=== PATIENT | male | born 1950 | race Caucasian/White ===

== ENCOUNTER 2017-02-05 21:31 | Inpatient (IN) | payer MEDICARE ==
[~2017-02-05] VITALS: Ht 185.4 cm; Wt 70.3 kg
--- NOTE | 2017-02-05 21:34 | NUR ---
PTAMBULATORY TO ER BED 07. 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 PT GOWNED AND PLACED ON MONITOR. STABLE VITALS. AWAITING MD MOLINA.
--- NOTE | 2017-02-05 21:58 | NUR ---
IV LINE STARTED BLOOD DRAWN AND SENT TO LAB.
[2017-02-05 22:05] LABS: BASOPHILS % (AUTO) 0.5 % (0.0-2.0); EOSINOPHILS # (AUTO) 0.2 /CMM (0.0-0.7); EOSINOPHILS % (AUTO) 2.7 % (0.0-6.0); HEMATOCRIT 39 % (39-51); LYMPHOCYTES # (AUTO) 3.2 /CMM (0.8-4.8); MEAN CORPUSCULAR HEMOGLOBIN 31 PG (26.0-33.0); MEAN CORPUSCULAR HGB CONC 34 g/dl (31.0-36.0); MEAN CORPUSCULAR VOLUME 93 fL (80-96); MONOCYTES # (AUTO) 0.7 /CMM (0.1-1.30); MONOCYTES % (AUTO) 7.2 % (2.0-12.0); NEUTROPHILS % (AUTO) 54.6 % (43.0-81.0); PLATELET COUNT (AUTO) 281 /CMM (150-450); RDW COEFFICIENT OF VARIATION 14.8 (11.5-15.0); RED BLOOD CELL COUNT(AUTO) 4.17 MIL/uL (4.5-6.0); WHITE BLOOD COUNT (AUTO) 9.1 K/uL (4.3-11.0)
[2017-02-05 22:13] LABS: CALCIUM, SERUM 9.1 mg/dL (8.5-10.1); CARBON DIOXIDE 30 mmol/L (21-32); CHLORIDE 108 mmol/L (98-107); CREATININE 1.4 mg/dL (0.6-1.3); GLUCOSE 108 mg/dL (74-106); SODIUM SERUM 145 mmol/L (136-145); UREA NITROGEN, BLOOD 19 mg/dL (7-18)
[2017-02-05 22:24] LABS: INR 0.91 (0.87-1.13); PROTHROMBIN TIME 9.5 SECS (9.5-12.7)
--- NOTE | 2017-02-05 22:24 | NUR ---
DR RAMSAY AT BEDSIDE FOR EVAL.
[2017-02-05] MEDS ORDERED: NITROGLYCERIN 0.4 MG/TAB BOTTLE SL ONE (22:30)
[2017-02-05] MEDS ORDERED: ASPIRIN 81 MG TAB.CHEW PO ONE (22:30)
[2017-02-05] MEDS ORDERED: NITROGLYCERIN PACKET 1 GM PACKET TD ONE (22:30)
[2017-02-05 22:33] LABS: TROPONIN I < 0.017 ng/mL (0.00-0.056)
[2017-02-05] MEDS ORDERED: NITROGLYCERIN 0.4 MG/TAB BOTTLE ONE (22:38)
[2017-02-05] MEDS ORDERED: NITROGLYCERIN PACKET 1 GM PACKET ONE (22:38)
[2017-02-05] MEDS ORDERED: ASPIRIN 81 MG TAB.CHEW ONE ×2 (22:39→22:42)
[2017-02-05] MEDS ORDERED: ACETAMINOPHEN ES 500 MG TABLET ONE (22:51)
[2017-02-05 22:52] LABS: ALBUMIN 3.5 g/dL (3.4-5.0); BILIRUBIN,TOTAL 0.3 mg/dL (0.2-1.0); TOTAL PROTEIN, SERUM 6.8 g/dL (6.4-8.2)
--- NOTE | 2017-02-05 22:55 | NUR ---
PT STATES CHEST PAIN IS WORST THAN WHEN HE CAME IN. DOES NOT WANT ANOTHER NITRO.STABLE VITALS. WILL CONTINUE TO MONITOR.
[2017-02-05] MEDS ORDERED: ACETAMINOPHEN ES 500 MG TABLET PO ONE (23:00)
--- NOTE | 2017-02-05 23:55 | NUR ---
report to charge nurse laila for carina.
[2017-02-06] VITALS (7 sets, daily range): BP systolic 94–122; BP diastolic 56–72
[2017-02-06] MEDS ORDERED: IV NS 0.9% 250 ML IV ONE
[2017-02-06] MEDS ORDERED: IOHEXOL-350 100 ML VIAL IV ONE
[2017-02-06] MEDS ORDERED: IV NS 0.9% 1,000 ML BAG IV ONE
--- NOTE | 2017-02-06 00:49 | NUR ---
PANEL PAGED PER ER MD ORDER. CT PULMONARY ANGIOGRAM RESULT RECEIVED. ER MD AWARE.
--- NOTE | 2017-02-06 00:49 | NUR ---
Ashtyn leblanc in ED - 02/06/17 at 0054 by LEATHA PANEL PAGED PER ALICE JON PT TRANSPORTED TO RADIOLOGY FOR CT PULMONARY ANGIOGRAM.
--- NOTE | 2017-02-06 00:56 | NUR ---
REPORT CALLED TO RADIOLOGIC TECHNOLOGIST CHIEFMARAL ASTUDILLO. WILL TRANSPORT PT VIA ACLS PROTOCOL.
--- NOTE | 2017-02-06 01:01 | NUR ---
ALICE JENSEN TALKING TO DR. CHAN REGARIDNG PT ADMISSION. WILL TRANSPORT PT VIA ACLS PROTOCOL.
--- NOTE | 2017-02-06 01:16 | NUR ---
pt transfered to via [facility] with emt and rn.
--- NOTE | 2017-02-06 01:20 | NUR ---
RN ADMITTING NOTES RECEIVED REPORT FROM SENIOR MECHANICAL DESIGNER ED. FOUND Pt RESTING COMFORTABLY IN BED. NO S/S OF ACUTE DISTRESS OR SOB NOTED. NO C/O CP AT THIS TIME. Pt IS A/OX4, VERBAL, ABLE TO MAKE NEEDS KNOWN. AT BEDSIDE. ON TELE. IV ACCESS ON LAC #18G, SL. SAFETY MEASURES IN PLACE. BED LOW, LOCKED, HOB ELEVATED, SIDE RAILS UP, CALL LIGHT AND BEDSIDE TABLE WITHIN REACH. WILL CONTINUE TO MONITOR Pt THROUGHOUT THE NIGHT FOR SAFETY.
[2017-02-06] MEDS: NITROGLYCERIN PACKET 1 GM PACKET TOP SCH ×2 (01:30→04:53)
[2017-02-06] MEDS ORDERED: MAG HYDROX/AL HYDROX/SIMETH 30 ML UDC PO PRN (01:30)
[2017-02-06] MEDS ORDERED: ONDANSETRON HCL/PF 4 MG/2 ML VIAL IVP PRN (01:30)
[2017-02-06] MEDS ORDERED: ZOLPIDEM TARTRATE 5 MG TABLET PO PRN (01:30)
[2017-02-06] MEDS ORDERED: ACETAMINOPHEN 325 MG TABLET PO PRN (01:30)
[2017-02-06] MEDS ORDERED: MAGNESIUM HYDROXIDE 30 ML UDC PO PRN (01:30)
[2017-02-06] MEDS ORDERED: MORPHINE SULFATE INJ 2 MG/ML DISP.SYRIN IV PRN (01:30)
[2017-02-06] MEDS ORDERED: HYDROCODONE/APAP 5/325MG 1 EACH TABLET PO PRN (01:30)
[2017-02-06] MEDS ORDERED: Z GUARD REMEDY 2 OZ OINT TP PRN (01:30)
[2017-02-06] MEDS ORDERED: HYDROCODONE/APAP 10/325MG 1 EA TABLET PO PRN (01:30)
[2017-02-06] MEDS ORDERED: ENOXAPARIN SODIUM 40 MG/0.4 ML DISP.SYRIN SQ SCH (01:30)
--- NOTE | 2017-02-06 01:30 | NUR ---
RN NOTES HELD DOSE OF NITRO-BID CREAM @0130. WAS ALREADY GIVEN THE MED IN ER AROUND 2230. WILL GIVE NEXT SCHEDULED DOSE CLOSER TO 600AM.
[2017-02-06] MEDS ORDERED: ENOXAPARIN SODIUM 40 MG/0.4 ML DISP.SYRIN SQ ONE (02:06)
--- NOTE | 2017-02-06 04:57 | NUR ---
RN NOTES HELD NEXT SCHEDULED DOES OF NITRO-BID CREAM D/T DROPPED BP OF 94/57. WILL CONTINUE TO MONITOR Pt's BP THROUGHOUT THE SHIFT.
[2017-02-06] MEDS ORDERED: ACETAMINOPHEN 325 MG TABLET ONE (06:20)
--- NOTE | 2017-02-06 06:45 | NUR ---
RN CLOSING NOTES NO SIGNIFICANT CHANGES IN Pt's CONDITION NOTED DURING THE SHIFT. Pt REMAINS STABLE. ALL NEEDS MET AND ATTENDED TO. SAFETY MEASURES IN PLACE. WILL ENDORSE TO TANNA RN FOR Pt's RANDEE. Addendum: 02/06/17 at 0657 by GRAY MAYBERRY RN TELE READING SB 53, WHILE SLEEPING. SR 60's WHILE AWAKE.
[2017-02-06] MEDS: PANTOPRAZOLE 40 MG TABLET.DR PO SCH (07:30)
--- NOTE | 2017-02-06 08:00 | NUR ---
RN NOTES RECEIVED PATIENT IN THE ROOM A/O X4, COOPERATIVE, NO RESPIRATORY, NO ACUTE DISTRESS AT THIS TIME, PATIENT NPO AT THIS TIME, NO C/O PAIN, V/S TAKEN STABLE, PT AMBULATORY, IV LINE LEFT AC AREA INTACT, PATIENT NEEDS ATTENDED AND ANTICIPATED. CALL LIGHT WITHIN TO REACH, SAFETY PRECAUTION MAINTAINED ALL THE TIME. CONTINUED MONITORING.
[2017-02-06] MEDS ORDERED: IV NS 0.9% 1,000 ML IV PRN (08:20)
[2017-02-06] MEDS ORDERED: PENT400T2 PO (08:25)
[2017-02-06] MEDS ORDERED: ALLO300T2 PO (08:25)
[2017-02-06 08:47] LABS: ALBUMIN 2.9 g/dL (3.4-5.0); BILIRUBIN,TOTAL 1.2 mg/dL (0.2-1.0); CALCIUM, SERUM 8.6 mg/dL (8.5-10.1); CREATININE 1.4 mg/dL (0.6-1.3); MAGNESIUM 1.8 mg/dL (1.8-2.4); PHOSPHORUS 3.4 mg/dL (2.5-4.9); POTASSIUM 3.8 mmol/L (3.5-5.1); TOTAL PROTEIN, SERUM 5.6 g/dL (6.4-8.2)
[2017-02-06 08:54] LABS: THYROID STIMULATING HORMONE 2.251 uIU/mL (0.358-3.74)
[2017-02-06] MEDS: ASPIRIN 325 MG TABLET PO SCH (09:00)
[2017-02-06] MEDS: DOCUSATE SODIUM 100 MG CAPSULE PO SCH ×2 (09:00→16:54)
--- NOTE | 2017-02-06 09:15 | NUR ---
RN NOTES PATIENT WITH US [employer] EXCHANGE ARCHITECT FOR ABDOMINAL ULTRASOUND, NO ACUTE DISTRESS, PT TOLERATED PROCEDURE WELL, STILL NPO, PATIENT SCHEDULED 1200 FOR STRESS TEST. NEXT TO THE BED, CALL LIGHT WITH IN TO REACH, SAFETY PRECAUTION MAINTAINED ALL THE TIME.
--- NOTE | 2017-02-06 11:18 | NUR ---
RN NOTES PATIENT IN THE BED RESTING, NO ACUTE, NO RESPIRATORY DISTRESS, CONSENT FORM SIGN BY PATIENT, NO C/O PAIN AT THIS TIME, CALL LIGHT WITHIN TO REACH. PATIENT NPO, SAFETY PRECAUTION MAINTAINED ALL THE TIME.
--- NOTE | 2017-02-06 12:31 | NUR ---
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
[2017-02-06] MEDS: NITROGLYCERIN 30 GM TUBE TOP SCH ×2 (13:00→20:40)
--- NOTE | 2017-02-06 13:13 | NUR ---
RN NOTES PATIENT BACK FROM STRESS TEST AT THIS TIME, NO ACUTE DISTRESS, NO RESPIRATORY DISTRESS, NO C/O PAIN AT THIS TIME, V/S STABLE, PATIENT GOING TO EAT. CALL LIGHT WITHIN TO REACH, NEXT TO THE BED, SAFETY PRECAUTION MAINTAINED ALL THE TIME.
[2017-02-06] MEDS: ATORVASTATIN 40 MG TABLET PO SCH (16:24)
--- NOTE | 2017-02-06 17:27 | NUR ---
RN NOTES PATIENT IN THE ROOM, NO ACUTE DISTRESS, NO C/O PAIN AT THIS TIME, . PATIENT SCHEDULED MED COMPLIANT, NEXT TO THE BED, CALL LIGHT WITHIN TO REACH, SAFETY PRECAUTION MAINTAINED ALL THE TIME.
--- NOTE | 2017-02-06 19:11 | NUR ---
RN NOTES PATIENT IN THE ROOM, STABLE AT THIS TIME, NO RESPIRATORY DISTRESS, NO C/O PAIN, CALL LIGHT WITHIN TO REACH, PT SELF CARE, AMBULATORY. SAFETY PRECAUTION MAINTAINED ALL THE TIME. ENDORSED ONCOMING NURSE FOR CONTINUATION OF CARE.
--- NOTE | 2017-02-06 19:41 | NUR ---
MS RN INITIAL NOTES PT ARRIVED TO ROOM AFTER VISITING SON IN ICU. AMBULATORY WITHOUT ASSIST. ABLE TO MAKE NEEDS KNOWN. NO SIGNS OF SOB OR DISTRESS. BREATHING EVENLY AND UNLABORED ON ROOM AIR. IV ACCESS IS INTACT AND PATENT. BED IS IN LOW AND LOCKED POSITION, CALL LIGHT WITHIN REACH. WILL CONTINUE TO MONITOR PT
[2017-02-06] MEDS: ENOXAPARIN SODIUM 40 MG/0.4 ML DISP.SYRIN SQ SCH (20:40)
[2017-02-07] MEDS: NITROGLYCERIN 30 GM TUBE TOP SCH ×2 (05:00→13:00)
[2017-02-07 05:53] LABS: BASOPHILS % (AUTO) 0.5 % (0.0-2.0); EOSINOPHILS # (AUTO) 0.2 /CMM (0.0-0.7); EOSINOPHILS % (AUTO) 3.5 % (0.0-6.0); HEMATOCRIT 36 % (39-51); HEMOGLOBIN 11.7 g/dL (13.5-17.5); LYMPHOCYTES # (AUTO) 1.7 /CMM (0.8-4.8); MEAN CORPUSCULAR HEMOGLOBIN 31 PG (26.0-33.0); MEAN CORPUSCULAR HGB CONC 33 g/dl (31.0-36.0); MEAN CORPUSCULAR VOLUME 94 fL (80-96); MONOCYTES # (AUTO) 0.5 /CMM (0.1-1.30); MONOCYTES % (AUTO) 6.9 % (2.0-12.0); NEUTROPHILS # (AUTO) 4.1 /CMM (1.8-8.9); NEUTROPHILS % (AUTO) 63.1 % (43.0-81.0); PLATELET COUNT (AUTO) 214 /CMM (150-450); RED BLOOD CELL COUNT(AUTO) 3.79 MIL/uL (4.5-6.0); WHITE BLOOD COUNT (AUTO) 6.6 K/uL (4.3-11.0)
[2017-02-07 05:59] LABS: BILIRUBIN,DIRECT 3.3 mg/dL (0.0-0.2); BILIRUBIN,TOTAL 4.6 mg/dL (0.2-1.0); CREATININE 1.1 mg/dL (0.6-1.3); MAGNESIUM 1.9 mg/dL (1.8-2.4); PHOSPHORUS 3.7 mg/dL (2.5-4.9); POTASSIUM 4.1 mmol/L (3.5-5.1); TOTAL PROTEIN, SERUM 6.1 g/dL (6.4-8.2)
--- NOTE | 2017-02-07 06:58 | NUR ---
MS RN CLOSING NOTES PT IS IN BED SLEEPING, NO SIGNS OF SOB OR DISTRESS. BREATHING EVENLY AND UNLABORED OR ROOM AIR. ALL NEEDS WERE ANTICIPATED AND MET. WILL ENDORSE TO DAY SHIFT
--- NOTE | 2017-02-07 07:15 | NUR ---
ms rn initial notes Received patient in bed, asleep, head of bed elevated, no SOB or distress noted, on room air and tolerated well 02 saturation of 98%. No complaint of pain or discomfort noted. IV intact and patent HL only. Patient is going for Hida scan procedure at 12 noon verified with Omar. Patient can eat breakfast and NPO after meal. Kept patient clean and comfortable in bed, call light with in patient reach, will continue to monitor accordingly.
[2017-02-07] MEDS: PANTOPRAZOLE 40 MG TABLET.DR PO SCH (07:30)
--- NOTE | 2017-02-07 07:48 | NUR ---
ms rn notes Held pantoprazole medication due this time due to patient is NPO for NM hida scan. Will continue to monitor accordingly.
[2017-02-07 08:00] VITALS: BP 129/71
[2017-02-07] MEDS: ASPIRIN 325 MG TABLET PO SCH ×2 (08:18→08:23)
[2017-02-07] MEDS: ATORVASTATIN 40 MG TABLET PO SCH ×2 (08:18→08:23)
[2017-02-07] MEDS: DOCUSATE SODIUM 100 MG CAPSULE PO SCH ×3 (08:18→16:24)
--- NOTE | 2017-02-07 08:24 | NUR ---
ms rn notes All due 9am medications not given due to patient refusal, explained the risk and benefits x 3, and still refused. per patient "Dr. Neal came and informed me that my heart is okay" so i dont want to take those medications". Will continue to monitor accordingly.
[2017-02-07] MEDS ORDERED: ALLOPURINOL 100 MG TABLET PO SCH (09:00)
[2017-02-07 16:00] VITALS: BP 133/71
--- NOTE | 2017-02-07 16:14 | NUR ---
ms rn notes Patient refused to take his nitroglycerin ointment, explained the risk and benefits x 3 and still refused. Informed MD and made aware. will continue to monitor accordingly.
--- NOTE | 2017-02-07 16:26 | NUR ---
ms rn notes paged dr Johnson regarding medication and ordered to discontinue Nitroglycerin. All orders carried out amd noted.
--- NOTE | 2017-02-07 19:30 | NUR ---
MS RN OPENING NOTES: RECEIVED PT IN BED LAYING DOWN IN BED. PT HAS 2 FAMILY MEMBERS AT BEDSIDE. PT ON ROOM AIR AND IS TOLERATING WELL. PT HAS IV ON L AC #18G AND IS PATENT AND INTACT. WILL START IV FLUIDS OF D5/0.9% NACL @100ML/HR SOON. PT/FAMILY ADAMANT ABOUT SPEAKING TO DOCTOR ABOUT HIS HIDA RESULTS AND HIS LAB WORK UP WELL. BED KEPT IN LOW, LOCKED POSITION, AND SIDE RAILS X 2 UP. WILL CONTINUE TO MONITOR PT.
--- NOTE | 2017-02-07 19:48 | NUR ---
ms rn closing notes All needs provided, attended, and anticipated. Kept patient clean and comfortable in bed, call light with in patient reach, endorsed to next shift RN to continue care.
[2017-02-07 19:49] VITALS: BP 120/69
[2017-02-07 20:00] VITALS: BP 120/69
[2017-02-07 20:18] LABS: ALBUMIN 3.3 g/dL (3.4-5.0); BILIRUBIN,DIRECT 4.4 mg/dL (0.0-0.2); BILIRUBIN,TOTAL 5.3 mg/dL (0.2-1.0); TOTAL PROTEIN, SERUM 6.7 g/dL (6.4-8.2)
[2017-02-07] MEDS: IV D5/ 0.9% NACL 1,000 ML IV PRN (20:27)
[2017-02-07] MEDS: ENOXAPARIN SODIUM 40 MG/0.4 ML DISP.SYRIN SQ SCH (21:00)
--- NOTE | 2017-02-07 21:07 | NUR ---
MS RN NOTES: PAGED FOR DOCTOR. FAMILY AND PATIENT ADAMANT ABOUT SPEAKING TO DOCTOR.
--- NOTE | 2017-02-07 21:10 | NUR ---
MS RN NOTES: SPOKE WITH DR. WHITMORE. DR WHITMORE SAID HE WILL SEE PATIENT AND FAMILY AROUND 10 OCLOCK.
--- NOTE | 2017-02-07 21:45 | NUR ---
MS RN NOTES: PT REFUSING LOVENOX AFTER HAVING EXPLAINED RISKS AND BENEFITS. PT STILL REFUSING.
--- NOTE | 2017-02-07 22:05 | NUR ---
MS RN NOTES: DR. WHITMORE AT BEDSIDE.
[2017-02-07] MEDS ORDERED: PIPERACILLIN /TAZOBACTAM 3.375 G VIAL IV ONE (23:46)
[2017-02-07] MEDS: PIPERACILLIN /TAZOBACTAM 3.375 G in IV D5W 50 ML IV SCH (23:56)
[2017-02-08] MEDS ORDERED: PIPERACILLIN /TAZOBACTAM 3.375 G VIAL IV ONE (05:18)
[2017-02-08] MEDS: PIPERACILLIN /TAZOBACTAM 3.375 G in IV D5W 50 ML IV SCH ×4 (05:23→23:58)
--- NOTE | 2017-02-08 07:25 | NUR ---
MS RN CLOSING NOTES: ALL NEEDS WERE ATTENDED AND ANTICIPATED FOR. PT IS RESTING UP WITH HOB ELEVATED. PT ON ROOM AIR AND IS TOLERATING WELL. PT HAS IV ON L AC #18G AND IS PATENT AND INTACT AND BEING INFUSED WITH D5/0.9% NACL AT 100ML/HR. URINAL OUTPUT WAS 450ML. BED KEPT IN LOW, LOCKED POSITION, AND SIDE RAILS X 2 UP. ENDORSED TO AM NURSE FOR RANDEE.
--- NOTE | 2017-02-08 07:50 | NUR ---
MS RN OPENING NOTES PATIENT IS ALERT AND ORIENTED. IN NO APPARENT DISTRESS. CALL LIGHT IS WITHIN REACH. BED IS LOCKED AND LOWERED. SIDE RAILS ARE UP X2. WILL CONTINUE TO MONITOR.
[2017-02-08 07:55] LABS: BASOPHILS % (AUTO) 0.3 % (0.0-2.0); EOSINOPHILS # (AUTO) 0.2 /CMM (0.0-0.7); EOSINOPHILS % (AUTO) 2.9 % (0.0-6.0); HEMATOCRIT 37 % (39-51); HEMOGLOBIN 12.4 g/dL (13.5-17.5); LYMPHOCYTES # (AUTO) 1.5 /CMM (0.8-4.8); LYMPHOCYTES % (AUTO) 18.7 % (20.0-44.0); MEAN CORPUSCULAR HEMOGLOBIN 31 PG (26.0-33.0); MEAN CORPUSCULAR HGB CONC 34 g/dl (31.0-36.0); MEAN CORPUSCULAR VOLUME 94 fL (80-96); MONOCYTES # (AUTO) 0.7 /CMM (0.1-1.30); MONOCYTES % (AUTO) 8.7 % (2.0-12.0); NEUTROPHILS # (AUTO) 5.8 /CMM (1.8-8.9); NEUTROPHILS % (AUTO) 69.4 % (43.0-81.0); PLATELET COUNT (AUTO) 219 /CMM (150-450); RDW COEFFICIENT OF VARIATION 14.9 (11.5-15.0); RED BLOOD CELL COUNT(AUTO) 3.93 MIL/uL (4.5-6.0); WHITE BLOOD COUNT (AUTO) 8.3 K/uL (4.3-11.0)
[2017-02-08 07:56] LABS: ALBUMIN 2.9 g/dL (3.4-5.0); BILIRUBIN,TOTAL 4.9 mg/dL (0.2-1.0); CALCIUM, SERUM 9.1 mg/dL (8.5-10.1); CREATININE 1.3 mg/dL (0.6-1.3); MAGNESIUM 1.8 mg/dL (1.8-2.4); PHOSPHORUS 3.1 mg/dL (2.5-4.9); POTASSIUM 3.9 mmol/L (3.5-5.1); TOTAL PROTEIN, SERUM 6.2 g/dL (6.4-8.2)
[2017-02-08 07:58] LABS: ALBUMIN 2.9 g/dL (3.4-5.0); BILIRUBIN,DIRECT 3.9 mg/dL (0.0-0.2); BILIRUBIN,TOTAL 4.8 mg/dL (0.2-1.0); TOTAL PROTEIN, SERUM 6.1 g/dL (6.4-8.2)
[2017-02-08 08:06] VITALS: BP 139/76
[2017-02-08] MEDS: ASPIRIN 325 MG TABLET PO SCH (08:38)
[2017-02-08] MEDS: DOCUSATE SODIUM 100 MG CAPSULE PO SCH ×2 (08:39→17:00)
[2017-02-08] MEDS: PANTOPRAZOLE 40 MG TABLET.DR PO SCH (08:39)
[2017-02-08] MEDS: IV D5/ 0.9% NACL 1,000 ML IV PRN (12:25)
[2017-02-08 12:47] LABS: ALBUMIN 2.9 g/dL (3.4-5.0); BILIRUBIN,DIRECT 4.2 mg/dL (0.0-0.2); BILIRUBIN,TOTAL 5.1 mg/dL (0.2-1.0); TOTAL PROTEIN, SERUM 6.1 g/dL (6.4-8.2)
[2017-02-08 16:00] VITALS: BP 120/74
--- NOTE | 2017-02-08 18:09 | NUR ---
MRCP APPROVD BY DR. BARNEY
--- NOTE | 2017-02-08 19:30 | NUR ---
RN NOTES RECEIVED PT SITTING IN BED, NO SOB, NOT IN DISTRESS ON ROOM AIR WITH GOOD SATURATION. FOR MRCP TOMORROW. IV ACCESS ON LEFT FORE ARM WITH ONGOING IVF NOTED WITH REDNESS ON THE SITE AND PT IS COMPLAINING OF PAIN, WILL REMOVE AND INSERT NEW IV LINE AND PT AGREED. PT WILL BE GIVEN SANDWICH NOW AND WILL PLACE ON NPO AFTER MIDNIGHT. WILL CONTINUE TO MONITOR PT.
--- NOTE | 2017-02-08 19:30 | NUR ---
RN NOTES RECEIVED PT SITTING IN BED, NO SOB, NOT IN DISTRESS ON ROOM AIR WITH GOOD SATURATION. FOR MRCP TOMORROW. IV ACCESSO
[2017-02-08 20:00] VITALS: BP 132/76
[2017-02-08] MEDS: ENOXAPARIN SODIUM 40 MG/0.4 ML DISP.SYRIN SQ SCH (21:00)
[2017-02-08 22:00] VITALS: BP 132/76
--- NOTE | 2017-02-09 | NUR ---
RN NOTES PLACED PT ON NPO. WILL CONTINUE TO MONITOR PT.
[2017-02-09] MEDS: IV D5/ 0.9% NACL 1,000 ML IV PRN (05:54)
[2017-02-09] MEDS: PIPERACILLIN /TAZOBACTAM 3.375 G in IV D5W 50 ML IV SCH ×2 (05:54→12:00)
[2017-02-09] MEDS: PANTOPRAZOLE 40 MG TABLET.DR PO SCH (07:30)
--- NOTE | 2017-02-09 07:30 | NUR ---
RN NOTES PT ASLEEP, BREATHING REGULAR AND UNLABORED. VITAL SIGNS STABLE, NO COMPLAIN OF PAIN, NO EPISODE OF NAUSEA AND VOMITING. ALL NEEDS ATTENDED. WILL ENDORSE TO MORNING RN FOR CONTINUITY OF CARE.
--- NOTE | 2017-02-09 07:49 | NUR ---
MS RN OPENING NOTES RECEIVED PATIENT IN STABLE CONDITION. PATIENT IS ALERT AND ORIENTED. BED IS LOCKED AND LOWERED. SIDE RAILS ARE UP X2. WILL CONTINUE TO MONITOR.
[2017-02-09 08:00] VITALS: BP 130/77
[2017-02-09 08:32] LABS: BASOPHILS % (AUTO) 0.3 % (0.0-2.0); EOSINOPHILS # (AUTO) 0.3 /CMM (0.0-0.7); EOSINOPHILS % (AUTO) 4.1 % (0.0-6.0); HEMATOCRIT 34 % (39-51); HEMOGLOBIN 11.6 g/dL (13.5-17.5); LYMPHOCYTES # (AUTO) 2.1 /CMM (0.8-4.8); LYMPHOCYTES % (AUTO) 25.7 % (20.0-44.0); MEAN CORPUSCULAR HEMOGLOBIN 32 PG (26.0-33.0); MEAN CORPUSCULAR HGB CONC 34 g/dl (31.0-36.0); MEAN CORPUSCULAR VOLUME 93 fL (80-96); MONOCYTES # (AUTO) 0.6 /CMM (0.1-1.30); NEUTROPHILS # (AUTO) 5.2 /CMM (1.8-8.9); NEUTROPHILS % (AUTO) 62.9 % (43.0-81.0); PLATELET COUNT (AUTO) 215 /CMM (150-450); RDW COEFFICIENT OF VARIATION 15.4 (11.5-15.0); RED BLOOD CELL COUNT(AUTO) 3.67 MIL/uL (4.5-6.0); WHITE BLOOD COUNT (AUTO) 8.3 K/uL (4.3-11.0)
[2017-02-09 08:58] LABS: ALBUMIN 2.8 g/dL (3.4-5.0); BILIRUBIN,DIRECT 0.9 mg/dL (0.0-0.2); BILIRUBIN,TOTAL 1.6 mg/dL (0.2-1.0); CALCIUM, SERUM 8.8 mg/dL (8.5-10.1); CREATININE 1.2 mg/dL (0.6-1.3); MAGNESIUM 1.8 mg/dL (1.8-2.4); PHOSPHORUS 3.7 mg/dL (2.5-4.9); POTASSIUM 3.6 mmol/L (3.5-5.1); TOTAL PROTEIN, SERUM 5.9 g/dL (6.4-8.2)
[2017-02-09] MEDS: ASPIRIN 325 MG TABLET PO SCH (09:00)
[2017-02-09] MEDS: DOCUSATE SODIUM 100 MG CAPSULE PO SCH (09:00)
--- NOTE | 2017-02-09 10:49 | NUR ---
CALLED DR DUNN AND RELAYED THE MRCP RESULTS WITH ORDER FOR CHOLECYSTECTOMY PROCEDURE POSSIBLY FOR TONIGHT OR TOMORROW AM DEPENDING ON THE AVAILABILITY OF O.R.. DR DUNN WILL CALL ME FOR THE UPDATE.RELAYED MRCP RESULTS TO THE PT AND MADE HIM AWARE DR DUNN'S PLAN AND THE PT STATED THAT HE WILL DECIDE ABOUT IT.ADVISED PT TO REMAIN ON NPO AT THIS TIME.
--- NOTE | 2017-02-09 11:30 | NUR ---
SPOKE TO THE PT WHO REFUSED TO HAVE CHOLECYSTECTOMY PROCEDURE.DR DUNN MADE AWARE WHO ALSO SPOKE TO THE PT.DR DUNN STATED TO LET THE PT SIGN AMA.KALYANI MALAVE AND DR LAGOS MADE AWARE OF PT'S REFUSAL FOR CHOLECYSTECTOMY PROCEDURE AND DR DUNN'S PLAN.
[2017-02-09 11:59] LABS: HEPATITIS Be AB Negative (Negative)
--- NOTE | 2017-02-09 15:00 | NUR ---
MS RN NOTES PATIENT WAS DISCHARGED IN STABLE CONDITION. PATIENT AMBULATORY.
== END 2017-02-09 15:00 | disposition home or self-care (01) | DRG 313 ==
LOC: ER 21:33 → TELE 02-06 01:01 → MED 02-06 12:47
PROVIDERS: ADMIT Internal Medicine; ATTEND Internal Medicine
DX: R07.89 Other chest pain (principal); N17.0 Acute kidney failure with tubular necrosis; K80.00 Calculus of gallbladder with acute cholecystitis without obstruction; E44.1 Mild protein-calorie malnutrition; B17.9 Acute viral hepatitis, unspecified; J43.2 Centrilobular emphysema; K29.70 Gastritis, unspecified, without bleeding; F17.200 Nicotine dependence, unspecified, uncomplicated; E78.5 Hyperlipidemia, unspecified; I70.0 Atherosclerosis of aorta; K21.9 Gastro-esophageal reflux disease without esophagitis; R91.1 Solitary pulmonary nodule; F10.10 Alcohol abuse, uncomplicated; Y90.9 Presence of alcohol in blood, level not specified; M10.9 Gout, unspecified; D64.9 Anemia, unspecified
CPT/HCPCS: 36415; 71010-TC; 74181-TC; 76700-TC; 78226; 80048-TC; 80053-TC; 80061-TC; 80076-TC; 83690-TC; 83735-TC; 83880; 84100-TC; 84439-TC; 84443-TC; 84484-TC; 85025-TC; 85378-TC; 85730-TC; 86704; 86705; 86707; 86708; 86709; 87081-TC; 87350; 93307-TC; A4606; A9502; A9537; J1650; J2543; J7030; J7042; J7050; J7060; Q9967; Z7610